=== PATIENT | female | born 1940 | race Caucasian/White ===

== ENCOUNTER 2023-12-23 16:48 | Inpatient (IN) | payer MEDICARE, SELFPAY ==
[2023-12-23] VITALS (8 sets, daily range): BP systolic 109–131; BP diastolic 51–76; BMI 31.4
--- NOTE | 2023-12-23 14:07 | ED.GENMED ---
History of Present Illness
General
Chief Complaint: Cold/Flu/URI Symptoms
Time Seen by Provider: 12/23/23 13:31
Travel History
Have you had any contact with someone who has COVID-19?: Unable to Answer
Do you have any symptoms of coronavirus? Fever > 100 degrees, chills, cough, shortness of breath, sore throat, loss of taste or smell, muscle aches, or headache?: Unable to Answer
History of Present Illness
History of Present Illness:
83-year-old female with history of hypothyroidism presents to the emergency department for evaluation of shortness of breath and coughing. She resides in [place], arrived late last week to visit her family was noted to be coughing arrival.
Symptoms became worse over the past 24 hours. She does seem to be confused according to the daughter today. Patient indicated having chest pain when enroute via EMS but denies this currently. Noted to be febrile on arrival. No leg swelling.
Does not take any anticoagulants. Daughter notes that she plans to follow-up with oxygen due to hypoxia however because of this is concerned
Review of Systems
Review of Systems
Allergies reviewed?: Yes
All Other Systems: ROS reviewed and negative except as documented in HPI and ROS
Phy Exam
Physical Exam
Physical Exam:
GEN: Ill-appearing, in respiratory distress
Eyes: PERRLA, EOMs intact, no scleral icterus
HENT: NCAT, oral mucosa moist
Lungs: Tachypneic, coarse rhonchi throughout all lung duque, frequent wet cough
Cardiac: RRR, no M/R/G, no peripheral edema. Radial pulses 2+ bilat
Abdomen: S, NT, ND, NABS, no masses or hepatosplenomegaly
Neuro: Alert, follows commands however intermittently does not answer questions. Moves all extremities freely
MSK: No gross deformity or ecchymosis. No edema. No digital clubbing
Skin: No rashes, petechiae. Normal color, no pallor or jaundice.
Psych: Calm, cooperative, proper hygiene
Course
Orders/Labs/Results
Orders:
Orders
12/23/23
Electrocardiogram (*1) Stat
Comment: DONE
12/23/23 14:06
CR Chest Portable - 1 View Urgent
Comment:
Reason For Exam: cough/SOB
Reason Study Needs to be Portable: Other
12/23/23 14:08
Acetaminophen [Tylenol] 1,000 mg PO NOW STA
12/23/23 14:12
COVID-19 Antigen Urgent
Source: Nasal Swab
Complete Blood Count/With Diff Urgent
Comprehensive Metabolic Panel Urgent
Lactic Acid Q4H
Comment: CANCEL 2nd LACTIC ACID IF 1st LACTIC ACID IS LESS THAN 2
Prothrombin Time Urgent
Blood Culture Q30M
MARYJANE Source: Blood/Venous
Specimen Description:
Influenza A+B Rapid Molecular Urgent
MARYJANE Source: Nasal Swab
Specimen Description:
12/23/23 14:45
Blood Culture Q30M
MARYJANE Source: Blood/Venous
Specimen Description:
12/23/23 14:59
Acetaminophen 1000MG/100Ml [Ofirmev] 1,000 mg in 100 ml IV ONCE
Acetaminophen IV Indication:: ED Narcotic Naive Pt-ONCE
Azithromycin 500 mg/250 ml [Zithromax Infusion] 500 mg in 250 ml IV NOW
CefTRIAXone [Rocephin] 1,000 mg IV NOW STA
12/23/23 Dinner
Regular
At Your Request: Limited Participation
12/23/23 15:20
Urinalysis Reflex To Culture Urgent
Date Specimen was Collected: 12/23/23
Time Specimen was Collected: 15:20
12/23/23 16:19
Admit/Transfer Patient As Directed
Co-Sign Provider:
Level of Care: Inpatient admission
Assign to:: Medical/Surgical
Physician / Group: shakila
Diagnosis: sepsis pneumonia
Reason for Hospitalization: sepsis pneumonia
Expected length of stay greater than two midnights?: Yes
ELOS- Estimated Length of Stay in days: 2
I certify the patient meets the requirements for IP care: Yes
12/23/23 16:20
Code Status As Directed
Resuscitation Status: Full Code
12/23/23 16:22
Respiratory Culture/Gram Stain Urgent
MARYJANE Source: Sputum
Specimen Description:
12/23/23 18:16
0.9% Sodium Chloride 1000 ml [Nss] 1,000 ml IV 100 mls/hr
12/23/23 19:36
Docusate Sodium [Colace] 100 mg PO BIDPRN PRN
Polyethylene Glycol Powder [Miralax] 17 grams PO DAILYPRN PRN
12/23/23 19:36
Activity As Directed
Activity Level: As Tolerated
Vital Signs As Directed
Frequency: Per unit guidelines
DX Deep Vein Thrombosis Video Routine
12/23/23 20:00
Heparin 5,000 units SC Q12
Ipratropium/Albuterol Sulfate [Duoneb] 3 ml INH R BID
Labetalol [Trandate] 200 mg PO BID
12/23/23 21:00
Acetaminophen [Tylenol] 650 mg PO Q4HPRN PRN
12/23/23 22:00
Pramipexole [Mirapex] 0.125 mg PO HS
12/24/23 06:00
Complete Blood Count/With Diff IN AM
Comprehensive Metabolic Panel IN AM
Levothyroxine [Synthroid] 25 mcg PO DAILY @ 0600
12/24/23 08:00
Aspirin Low Dose EC [Aspir Low (Enteric Coated)] 81 mg PO DAILY
Lactobac/Bifidobac [Visbiome] 1 cap PO DAILY
Potassium Chloride 10% Elixir [KCl Elixir] 20 meq PO DAILY
Tolterodine Extended Release [Detrol LA] 4 mg PO DAILY
Venlafaxine Extended Release [Effexor Xr] 150 mg PO DAILY
12/24/23 14:00
Azithromycin 500 mg/250 ml [Zithromax Infusion] 500 mg in 250 ml IV Q24H
CefTRIAXone [Rocephin] 1,000 mg IV Q24H
Abnormal Lab Results
12/23/23 12/23/23
14:12 15:20
WBC 12.7 H 10^3/uL
(4.8-10.8)
RBC 3.52 L 10^6/uL
(4.20-5.40)
Hgb 9.3 L g/dL
(12.0-16.0)
Hct 29.3 L %
(37.0-47.0)
MCH 26.4 L pg
(27.0-31.0)
MCHC 31.7 L g/dL
(33.0-37.0)
RDW 15.5 H %
(11.5-14.5)
Abs Immat Gran (auto) 0.1 H 10^3/uL
(0-0.05)
Absolute Neuts (auto) 11.4 H 10^3/uL
(1.4-6.5)
Absolute Lymphs (auto) 0.7 L 10^3/uL
(1.2-3.4)
Neutrophils % 89.7 H %
(42.2-75.2)
Lymphocytes % 5.7 L %
(20.5-51.1)
Sodium 133 L mmol/L
(135-145)
Glucose 108 H mg/dl
(70-99)
AST 82 H U/L
(14-36)
Urine Ketones Trace A
(Negative)
Urine Bilirubin 1+ A
(Negative)
12/23/23 14:12
12/23/23 14:12
Vital Signs
Initial and Last Documented VS:
Initial Vital Signs
Temp Pulse Resp BP Pulse Ox
103 F H 97 24 131/68 90
12/23/23 13:32 12/23/23 13:32 12/23/23 13:32 12/23/23 13:32 12/23/23 13:32
Last Documented Vital Signs
Temp Pulse Resp BP Pulse Ox
97.8 F 81 16 115/61 100
12/23/23 19:35 12/23/23 20:25 12/23/23 20:25 12/23/23 20:14 12/23/23 20:25
MDM/Problems Addressed
MDM/Problems Addressed:
83-year-old female presents with hypoxia, fever, and cough. She is found to have a right upper lobe PNA on Chest x-ray. Due to the hypoxia and her overall ill appearance will require hospitalization for further IV antibiotics and management.
Given the chest x-ray findings have a low clinical suspicion for PE in the setting of her recent travels particular given the associated fever.
Comment
Comment:
EKG independently interpreted by me shows normal sinus rhythm at a rate of [address] changes concerning for ischemia, QTc of 415
*Critical Care Note
Total Time (30-74mins, 75-104mins- exclusive of procedures): Not Applicable
ED Attending Note
-
Portions of this chart may have been created with voice recognition software.� Occasional wrong word or��sound alike� substitutions may have occurred due to the inherent limitations of voice recognition software.
Discharge Plan
Departure
Patient Disposition: Admit
Date of Disposition: 12/23/23
Time of Disposition: 15:11
Presentation/result/management discussed w/ accepting MD/DO: Hospitalist
Discharge Problem:
Right upper lobe pneumonia, Acute hypoxemic respiratory failure
Interventions
Interventions:
*Risk Screen - Suicide Last Done: 12/23/23 13:36
*General Assessment Last Done: 12/23/23 13:36
*Neglect/Abuse Screening Last Done: 12/23/23 13:36
*ED COVID-19 Vaccine History Last Done: 12/23/23 13:35
*Nursing Disposition Last Done: 12/23/23 19:38
ED- Pulmonary Assessment Last Done: 12/23/23 13:35
Discharge Date and Time
Discharge Date/Time: 12/23/23 19:39
[2023-12-23 14:26] LABS: % Basophils 0.2 % (0-2); % Eosinophils 0.2 % (0-6); % Immature Granulocytes 0.4 % (0-0.5); % Lymphocytes 5.7 % (20.5-51.1); % Monocytes 3.8 % (1.7-9.3); % Neutrophils 89.7 % (42.2-75.2); Absolute Immature Granulocytes 0.1 10^3/uL (0-0.05); Absolute Lymphocytes 0.7 10^3/uL (1.2-3.4); Absolute Monocytes 0.5 10^3/uL (0.1-0.6); Absolute Neutrophils 11.4 10^3/uL (1.4-6.5); Hematocrit 29.3 % (37.0-47.0); Hemoglobin 9.3 g/dL (12.0-16.0); Mean Corp Hgb Conc. 31.7 g/dL (33.0-37.0); Mean Corpuscular Hgb 26.4 pg (27.0-31.0); Mean Corpuscular Volume 83.2 fL (81.0-99.0); Mean Platelet Volume 8.7 fL (7.4-10.4); Nucleated Red Blood Cells % 0 %; Platelet Count 216 10^3/uL (130-400); Red Blood Cell Count 3.52 10^6/uL (4.20-5.40); Red Cell Dist. Width 15.5 % (11.5-14.5); White Blood Cell Count 12.7 10^3/uL (4.8-10.8)
[2023-12-23 14:33] LABS: PT 13.2 Sec (11.4-14.6)
[2023-12-23 14:35] LABS: Lactic Acid 1.3 mmol/L (0.7-2.0)
[2023-12-23 14:36] LABS: ALT (SGPT) 20 U/L (0-35); AST (SGOT) 82 U/L (14-36); Albumin 3.9 g/dl (3.5-5.0); Alkaline Phosphatase 87 U/L (38-126); Blood Urea Nitrogen 15 mg/dl (7-17); Calcium 9.8 mg/dl (8.4-10.2); Carbon Dioxide 25 mmol/L (22-30); Chloride 103 mmol/L (98-107); Glucose 108 mg/dl (70-99); Potassium 4.8 mmol/L (3.5-5.1); Sodium 133 mmol/L (135-145); Total Bilirubin 0.7 mg/dl (0.2-1.3); Total Protein 6.3 g/dl (6.3-8.2); eGFR > 60.00
[2023-12-23 14:43] LABS: COVID-19 Antigen Negative (Negative)
--- NOTE | 2023-12-23 14:54 | EDRN ---
Unable to obtain IV access after numerous attempts and via ultrasound by PA. IV team made aware. Pt appears too lethargic and AMS to take PO tylenol.
[2023-12-23] MEDS: ROCEPHIN 1000 MG IV (15:03)
[2023-12-23] MEDS: OFIRMEV 100 IV (15:07)
[2023-12-23] MEDS: ZITHROMAX INFUSION 250 IV (15:18)
[2023-12-23 15:49] LABS: Urine Albumin Negative (Neg - Trace); Urine Bilirubin 1+ (Negative); Urine Character Clear (Clear); Urine Color Yellow; Urine Glucose Negative (Negative); Urine Ketone Trace (Negative); Urine Leukocyte Negative (Negative); Urine Nitrite Negative (Negative); Urine Occult Blood Negative (Negative); Urine Urobilinogen Negative (Neg - 1+)
--- NOTE | 2023-12-23 16:22 | HPS.HSE ---
Family Physician
-
Family Physician: * NONE
Chief Complaint
-
cough
History of Present Illness
83-year-old female past medical history of hypertension, hypothyroidism, restless leg syndrome, chronic back pain with intra-abdominal morphine pump, anxiety/depression, presenting with shortness of breath and possibly productive cough since
yesterday. She lives in [place] and arrived late last week to visit her family. As per daughter she was tired and lethargic but alert today. Patient was having chest pain en route to the hospital but denies chest pain currently. She was noted to
be febrile. No leg swelling. No nausea or vomiting.
Patient is a former smoker. She does not drink alcohol.
Medical History
Past Medical History
Past Medical History: Reports Other (hypertension, hypothyroidism, restless leg syndrome, chronic back pain with intra-abdominal morphine pump, anxiety/depression,)
Past Surgical History: Reports None
Social History
Tobacco: Former Smoker
Alcohol: None
Drug: None
Family History
Family History: Not pertinent
Allergies / Home Medications
Allergies reflects when Allergies were last updated in [facility].
Home Medications with original date entered in [facility]
Allergy/Medication List:
Allergies
Allergy/AdvReac Type Severity Reaction Status Date / Time
ciprofloxacin AdvReac Severe Pharmacy Verified 12/23/23 14:04
to Review
lorazepam [From Ativan] AdvReac Severe Pharmacy Verified 12/23/23 14:04
to Review
morphine AdvReac Intermediate Pharmacy Verified 12/23/23 14:05
to Review
Home Medications
Lactobac no.2-Bifidobac no.1-S. thermo 112.5 billion cell capsule (Visbiome) 1 cap PO DAILY Gastrointestinal Issue 12/23/23
acetaminophen 325 mg tablet (Tylenol) 650 mg PO Q4HPRN PRN mild pain 12/23/23
aspirin 81 mg tablet,delayed release 81 mg PO DAILY Blood Clot Prevention/Tx 12/23/23
docusate sodium 100 mg capsule (Colace) 100 mg PO BIDPRN PRN mild pain 12/23/23
gabapentin 100 mg capsule 100 mg PO BID Pain 12/23/23
ipratropium 0.5 mg-albuterol 3 mg (2.5 mg base)/3 mL nebulization soln 3 ml inhalation R BID Lung/Breathing Issues 12/23/23
labetalol 200 mg tablet 200 mg PO BID Blood Pressure 12/23/23
levothyroxine 25 mcg tablet (Synthroid) 25 mcg PO DAILY Thyroid 12/23/23
potassium chloride 20 mEq/15 mL oral liquid 20 meq PO DAILY Electrolyte Repletion 12/23/23
pramipexole 0.125 mg tablet 0.125 mg PO HS Neurological Condition 12/23/23
trazodone 100 mg tablet 100 mg PO HS Sleep 12/23/23
venlafaxine 150 mg capsule,extended release 24 hr (Effexor XR) 150 mg PO DAILY Mental Health 12/23/23
vibegron 75 mg tablet (Gemtesa) 75 mg PO DAILY Urinary Issue 12/23/23
Review of Systems
-
History Source: Patient
A 12 point ROS was completed and negative except as noted: Yes
Constitutional: Reports No Symptoms
EENT: Reports No Symptoms
Respiratory: Reports See HPI
Cardiac: Reports No Symptoms
Abdomen/GI: Reports No Symptoms
: Reports No Symptoms
Musculoskeletal: Reports No Symptoms
Skin: Reports No Symptoms
Neurological: Reports No Symptoms
Endocrine: Reports No Symptoms
Hematologic/Lymphatic: Reports No Symptoms
Psych: Reports No Symptoms
Physical Exam
Vital Signs
Vital Signs
Temp Pulse Resp BP Pulse Ox
103 F H 95 23 125/64 96
12/23/23 13:32 12/23/23 15:00 12/23/23 15:00 12/23/23 15:00 12/23/23 15:00
Physical Exam
General: Well Developed, Well Nourished and No Apparent Distress
HEENT: NormoCephalic, Moist mucous membranes and Atraumatic
Cardiac: S1/S2 and Regular Rhythm; No Murmur or Rub
GI: Soft, Non Tender, Non Distended and Normal Bowel Sounds; No Organomegaly
Rectal: Deferred by Provider
Musculoskeletal: No Clubbing, No Cyanosis and No Edema
Skin: No Rash
Neuro: Nonfocal/grossly intact
Laboratory Results
-
12/23/23 14:12
12/23/23 14:12
Laboratory Results
PT 13.2 Sec (11.4-14.6) 12/23/23 14:12
INR 1.00 12/23/23 14:12
Lactic Acid 1.3 mmol/L (0.7-2.0) 12/23/23 14:12
Total Bilirubin 0.7 mg/dl (0.2-1.3) 12/23/23 14:12
AST 82 U/L (14-36) H 12/23/23 14:12
ALT 20 U/L (0-35) 12/23/23 14:12
Alkaline Phosphatase 87 U/L (38-126) 12/23/23 14:12
Data Reviewed
-
Lab Data: Labs Reviewed by me
Old Records: Reviewed
Impression/Plan
-
IMPRESSION:
PLAN:
# Sepsis (fever, tachycardia, leukocytosis, tachypnea) secondary to right upper lobe community-acquired pneumonia
-Chest x-ray shows right upper lobe pneumonia
-COVID, influenza negative
-EKG normal sinus
-Check sputum culture
-Check blood cultures
-IV fluids
-Ceftriaxone/azithromycin
Presumably chronic anemia
-No prior lab work
-Hemoglobin 9.3
Essential hypertension
-Continue labetalol
Hypothyroidism
-Continue levothyroxine
Restless leg syndrome
-Continue pramipexole
-Hold gabapentin given lethargy
Anxiety/depression
-Continue venlafaxine
-Hold trazodone given lethargy
History of back pain status post back surgery with intra-abdominal morphine pump
History of incontinence
-Continue Gemtesa,
Former smoker
DNR/DNI
DVT prophylaxis�heparin
Regular diet
[2023-12-23] MEDS: NSS 1000 IV (19:03)
--- NOTE | 2023-12-23 19:35 | PTCARENOTE ---
Pt received from ED to 414-1. Pt oriented to room and call hennessy. Bed alarm in place.
[2023-12-23] MEDS: HEPARIN 5000 UNITS SC (20:13)
[2023-12-23] MEDS: MIRAPEX 0.125 MG PO (20:13)
[2023-12-23] MEDS: TRANDATE 200 MG PO (20:14)
[2023-12-23] MEDS: DUONEB 3 ML INH (20:25)
[2023-12-24] MEDS: NSS 1000 IV (05:57)
[2023-12-24] MEDS: SYNTHROID 25 MCG PO (05:57)
[2023-12-24 07:30] VITALS: BP 120/71
[2023-12-24] MEDS: DUONEB 3 ML INH (08:01)
[2023-12-24 08:06] VITALS: BP 120/71
[2023-12-24] MEDS: ASPIR LOW (ENTERIC COATED) 81 MG PO (08:17)
[2023-12-24] MEDS: EFFEXOR XR 150 MG PO (08:17)
[2023-12-24] MEDS: VISBIOME 1 CAP PO (08:18)
[2023-12-24] MEDS: KCL ELIXIR 20 MEQ PO (08:18)
[2023-12-24] MEDS: TRANDATE 200 MG PO (08:18)
[2023-12-24] MEDS: DETROL LA 4 MG PO (08:19)
[2023-12-24] MEDS: HEPARIN 5000 UNITS SC (08:19)
[2023-12-24 08:38] LABS: % Basophils 0.2 % (0-2); % Immature Granulocytes 0.6 % (0-0.5); % Lymphocytes 12.6 % (20.5-51.1); % Monocytes 5.5 % (1.7-9.3); % Neutrophils 80.1 % (42.2-75.2); Absolute Eosinophils 0.1 10^3/uL (0-0.7); Absolute Immature Granulocytes 0.1 10^3/uL (0-0.05); Absolute Lymphocytes 1.4 10^3/uL (1.2-3.4); Absolute Monocytes 0.6 10^3/uL (0.1-0.6); Absolute Neutrophils 8.7 10^3/uL (1.4-6.5); Hematocrit 24.7 % (37.0-47.0); Hemoglobin 7.7 g/dL (12.0-16.0); Mean Corp Hgb Conc. 31.2 g/dL (33.0-37.0); Mean Corpuscular Hgb 26.7 pg (27.0-31.0); Mean Corpuscular Volume 85.8 fL (81.0-99.0); Mean Platelet Volume 9.3 fL (7.4-10.4); Nucleated Red Blood Cells % 0 %; Platelet Count 163 10^3/uL (130-400); Red Blood Cell Count 2.88 10^6/uL (4.20-5.40); Red Cell Dist. Width 15.8 % (11.5-14.5); White Blood Cell Count 10.8 10^3/uL (4.8-10.8)
[2023-12-24 09:26] LABS: ALT (SGPT) 15 U/L (0-35); AST (SGOT) 60 U/L (14-36); Albumin 2.8 g/dl (3.5-5.0); Alkaline Phosphatase 76 U/L (38-126); Blood Urea Nitrogen 16 mg/dl (7-17); Calcium 8.9 mg/dl (8.4-10.2); Carbon Dioxide 25 mmol/L (22-30); Chloride 107 mmol/L (98-107); Estimated Creatinine Clearance 52 ml/min; Glucose 90 mg/dl (70-99); Potassium 3.9 mmol/L (3.5-5.1); Sodium 133 mmol/L (135-145); Total Bilirubin 0.4 mg/dl (0.2-1.3); eGFR > 60.00
--- NOTE | 2023-12-24 12:35 | CM ---
Patient seen bedside with daughter, initial assessment completed. Patient reports that she resides in [place] with her daughter and is currently visiting her daughter in [place]. Patient reports she has a walker at home and is on oxygen at home, unsure
of provider. Patient confirms PCP Jeannine Torres, pharmacy [facility] in [place]. Patient is hopeful to discharge tomorrow as she plans to return home on Thursday. CM will continue to follow for discharge planning needs.
Plan; return to [place] with daughter when stable.
--- NOTE | 2023-12-24 13:35 | W.PN.HOSP.TC ---
Today's Communication/Plan
-
d/c
Assessment / Plan
Assessment / Plan
pt is an 83 year old female
Sepsis (fever, tachycardia, leukocytosis, tachypnea) secondary to right upper lobe community-acquired pneumonia (confirmed by CXR)--COVID, influenza negative-Check sputum culture-Check blood cultures--stop IV fluids-Ceftriaxone/azithromycin, change
to oral
Presumably chronic anemia-No prior lab work-Hemoglobin 9.3 drop to 7.7 is likely dilutional--unclear where blood drawn this AM too.....
Essential hypertension-Continue labetalol
Hypothyroidism-Continue levothyroxine
Restless leg syndrome-Continue pramipexole-Hold gabapentin given lethargy
Anxiety/depression-Continue venlafaxine-Hold trazodone given lethargy
History of back pain status post back surgery with intra-abdominal morphine pump
History of incontinence-Continue Gemtesa,
Former smoker
DNR/DNI
DVT prophylaxis�heparin
Anticipated Discharge: Today
Subjective/Interval History
-
Date of Service: December 24, 2023
pt wants to go home
Objective Data
-
Labs:
Laboratory Results
12/24/23
07:34
WBC 10.8
Hgb 7.7 L
Hct 24.7 L
Plt Count 163 D
Sodium 133 L
Potassium 3.9
Chloride 107
Carbon Dioxide 25
BUN 16
Creatinine 0.8
Glucose 90
Calcium 8.9
Total Bilirubin 0.4
AST 60 H
ALT 15
Alkaline Phosphatase 76
Vital Signs:
max temp for 24 hours
12/23/23
13:32
Temp 103 F H
Vital Signs
Temp Pulse Resp BP Pulse Ox
98.4 F 79 16 120/71 97
12/24/23 07:30 12/24/23 08:02 12/24/23 08:02 12/24/23 07:30 12/24/23 08:20
I&O
12/23/23 12/24/23 12/25/23
06:59 06:59 06:59
Intake Total 1260 / 1260
Balance 1260 / 1260
Review of Systems
-
All other systems: Reviewed and negative
Physical Exam
-
General: Well Developed, Well Nourished and No Apparent Distress
HEENT: Normocephalic, Atraumatic and Oxygen
Respiratory: Rhonchi (right lung field)
Cardiac: Regular Rhythm and S1/S2; Negative Murmur
GI: Soft, Nontender, Nondistended and Normal Bowel Sounds
Musculoskeletal: No Clubbing, No Cyanosis and No Edema
Skin: Warm
Neuro: Awake
[2023-12-24 14:41] VITALS: BP 122/69
--- NOTE | 2023-12-24 15:28 | W.DCSUMMARY ---
Discharge Summary
Discharge Data
Date of Admission: 12/23/23
Date of Discharge: 12/24/23
-
Pending Results: No
Hospital Course
Primary care physician : Jeannine Torres
Principal Discharge diagnosis : Sepsis due to right upper lobe community-acquired pneumonia
Chronic Discharge diagnosis : Presumably anemia of chronic disease, essential hypertension, hypothyroidism, restless leg syndrome, anxiety/depression, history of back pain status post surgery with intra-abdominal morphine pump, history of
incontinence
Hospital Course : Patient was an 83-year-old female who has been visiting from [place]. Patient has multiple medical issues but does have acute hypoxemic respiratory insufficiency as she wears oxygen at night only. Patient's daughter stated that
she was tired and lethargic and weak. Upon evaluation in the emergency department patient was febrile. Workup found her to have pneumonia. Patient was admitted.
Problem #1: Sepsis due to right upper lobe community-acquired pneumonia. Patient was started on IV ceftriaxone and azithromycin. She was continued on oxygen. She normally wears it at home but was on 3 L here. COVID and influenza were checked and
were negative. Blood cultures were negative as well. Patient would like to go home as she is visiting and wants to spend what ever remaining time she has here with her family as she is due to go back to [place] this coming Thursday. Patient's
daughter stated that they do have oxygen at home for her. I have switched her to oral antibiotics. I did explain that if she gets worse that she should come back.
Problem #2: All other medical issues. These include Presumably anemia of chronic disease, essential hypertension, hypothyroidism, restless leg syndrome, anxiety/depression, history of back pain status post surgery with intra-abdominal morphine
pump, history of incontinence. These medical issues were stable during her hospitalization. Medications were continued as able. In regards to the possibility of anemia of chronic disease, patient's hemoglobin was 9.3 on admission. She did
receive IV fluids and her hemoglobin dropped to 7.7. It is unclear if this is due to IV fluid and dilution or whether her labs were drawn above the IV line with the IV fluids running in. There does not appear to be any active bleeding.
Patient is stable for discharge home at this time. If there are any questions regarding this dictation or her hospital stay, please not hesitate to call. Our office number is [phone]
Important imaging findings :
CXR IMPRESSION:
Right upper lobe pneumonia. Radiographic follow-up to resolution is recommended.
Discharge Plan
-
Patient Disposition: Home (Routine Discharge)
Discharge Diagnosis/Procedures: Sepsis due to right upper lobe community-acquired pneumonia, anemia of chronic disease likely, essential hypertension, hypothyroidism, restless leg syndrome, anxiety/depression, history of back pain status post back
surgery with an intra-abdominal morphine pump, history of incontinence
Condition: Fair
Diet: As tolerated and Regular
Activity: As tolerated
Driving Restrictions: As prior to admission
Bathing Restrictions: None
Referrals:
Jeannine Torres, DO [Family Provider] - in less than 1 week
Prescriptions:
New
amoxicillin-pot clavulanate 500-125 mg tablet
1 tab PO Q12H Qty: 20 0RF
Continued
acetaminophen [Tylenol] 325 mg Tablet
650 mg PO Q4HPRN PRN (Reason: mild pain)
ipratropium-albuterol 0.5 mg-3 mg(2.5 mg base)/3 mL Solution For Nebulization
3 ml INHALATION R BID
labetalol 200 mg Tablet
200 mg PO BID
venlafaxine [Effexor XR] 150 mg Capsule,Extended Release 24hr
150 mg PO DAILY
aspirin 81 mg Tablet,Delayed Release (Dr/Ec)
81 mg PO DAILY
levothyroxine [Synthroid] 25 mcg Tablet
25 mcg PO DAILY
potassium chloride 20 mEq/15 mL Liquid
20 meq PO DAILY
trazodone 100 mg Tablet
100 mg PO HS
pramipexole 0.125 mg Tablet
0.125 mg PO HS
docusate sodium [Colace] 100 mg Capsule
100 mg PO BIDPRN PRN (Reason: mild pain)
gabapentin 100 mg Capsule
100 mg PO BID
Visbiome 112.5 billion cell Capsule
1 cap PO DAILY
Gemtesa 75 mg Tablet
75 mg PO DAILY
Discharge Orders:
Discharge Patient (As Directed); Ordered 12/24/23
Ordered By: Chante Myers
Discharge Date and Time
Discharge Date/Time: 12/24/23 14:42
Print Language: GHANAIAN
== END 2023-12-24 14:42 | disposition home or self-care (01) | DRG 871 ==
LOC: 4 WEST ACU 16:48
PROVIDERS: Physician Assistant; ADMITTING PHYSICIAN Hospitalist; ATTENDING PHYSICIAN Internal Medicine; EMERGENCY PHYSICIAN Student in an Organized Health Care Education/Training Program; FAMILY PHYSICIAN Family Medicine
DX: A41.89 Other specified sepsis (principal); J18.9 Pneumonia, unspecified organism; Z11.52 Encounter for screening for COVID-19; Z87.891 Personal history of nicotine dependence; I10 Essential (primary) hypertension; E03.9 Hypothyroidism, unspecified; G25.81 Restless legs syndrome; F32.A Depression, unspecified; F41.9 Anxiety disorder, unspecified; Z66 Do not resuscitate; D63.8 Anemia in other chronic diseases classified elsewhere; M54.9 Dorsalgia, unspecified
CPT/HCPCS: 71045; 80053; 81003; 83605; 85025; 85610; 87040; 87502; 87811; 93005; 94640; 96361; 96374; 96375; 99285